=== PATIENT | male | born 1985 | race Two or more races ===

== ENCOUNTER 2021-05-28 09:24 | Inpatient (IN) | payer OTHER ==
[~2021-05-28] VITALS: Ht 172.7 cm; Wt 77.1 kg
[2021-05-28] MEDS ORDERED: DEXAMETHASONE SOD PHOSPHATE 4 MG INJ IV ONE (09:45)
[2021-05-28] MEDS ORDERED: IV NS 1000 ML 1,000 ML IV ONE (09:45)
[2021-05-28] MEDS ORDERED: DEXAMETHASONE SOD PHOSPHATE 10 MG INJ ONE (10:06)
[2021-05-28 10:15] LABS: CREATININE 1.4 mg/dL (0.6-1.3); POTASSIUM 4.5 mmol/L (3.5-5.1)
[2021-05-28 10:28] LABS: BILIRUBIN,TOTAL 0.6 mg/dL (0.2-1.0); TOTAL PROTEIN, SERUM 9.4 g/dL (6.4-8.2)
[2021-05-28 10:30] LABS: HEMATOCRIT 42.2 % (36.7-47.1); MEAN CORPUSCULAR HEMOGLOBIN 30.6 uug (23.8-33.4); PLATELET COUNT (AUTO) 90 K/uL (152-348)
[2021-05-28] MEDS ORDERED: IV NORMAL SALINE 1000 ML BAG IV ONE (10:45)
[2021-05-28] MEDS ORDERED: IOHEXOL 350 100 ML INFUS..BTL ONE (10:59)
[2021-05-28] MEDS ORDERED: SWABABLE VALVE TRANSFER SET EA MC ONE (10:59)
[2021-05-28] MEDS ORDERED: IV NORMAL SALINE 250 ML IV ONE (10:59)
--- NOTE | 2021-05-28 11:02 | NUR ---
Pt states feeling improvement in S/S. VSS, but continues to require O2 therapy. 1st L of NS complete, second started. news technical director transporting pt for [place] via [facility].
--- NOTE | 2021-05-28 11:35 | NUR ---
Pt returned from scan. Continues to states improvement over state of arrival. Decreased O2 to 10L. Pt responding well to decrease, SpO2 99%.
[2021-05-28] MEDS ORDERED: levoFLOXacin 750 MG/D5W 150 ML PIGGYBACK IV ONE (12:00)
[2021-05-28] MEDS ORDERED: levoFLOXacin 750MG/D5W 150 ML IV ONE (12:16)
--- NOTE | 2021-05-28 12:38 | NUR ---
Pt attempted to situp and transfer to bedside commode. Was able to transfer but quickly returned to bed at semi-fowlers and stated unable to breathe while sat on commode. Increase O2 therapy to 15L. Pt took a moment and was able to regain control of breathing. Used urinal instead of commode. States feeling better after laying for a bit with continued O2. Provider notified.
--- NOTE | 2021-05-28 13:55 | NUR ---
Decreased O2 to 10L non-rebreather, since feeling more stable since incident at commode. Pt tolerating well, SpO2 at 96%
[2021-05-28] MEDS ORDERED: ENOXAPARIN SODIUM 40 MG/0.4 ML DISP.SYRIN SQ ONE ×2 (14:15→14:28)
[2021-05-28] MEDS ORDERED: MAGNESIUM HYDROXIDE 30 ML LIQUID UDC PO PRN (14:45)
[2021-05-28] MEDS ORDERED: HYDROCODONE/APAP 5-325MG TABLET PO PRN (14:45)
[2021-05-28] MEDS ORDERED: ONDANSETRON 4 MG/2 ML VIAL IV PRN (14:45)
[2021-05-28] MEDS ORDERED: ACETAMINOPHEN 325 MG TABLET PO PRN (14:45)
[2021-05-28] MEDS ORDERED: Z GUARD REMEDY PASTE 57 GM TUBE TOP PRN (14:45)
--- NOTE | 2021-05-28 17:20 | NUR ---
Pt transported by ANNE De Los Santos via [facility] to [facility].
[2021-05-28 18:30] VITALS: BP 115/72
--- NOTE | 2021-05-28 19:00 | NUR ---
ADMITTED PATIENT FROM [facility] ER AT 1525 IS RESTING IN ROOM WITH THE NON REBREATHER MASK AT 15 LITERS WITH O2 AT 94-96 PERCENT VARYING NO SOB HE IS TRYING TO EAT DINNER AT THE MOMENT BUT C/O DOES NOT FEEL HUNGRY WILL CONTINUE TO OBSERVE ENCOURAGE ORAL FLUID INTAKE AT LEAST AND PROVIDE SAFE AND THERAPEUTIC ENVIRONMENT.
[2021-05-28 20:00] VITALS: BP 114/74
--- NOTE | 2021-05-28 22:12 | NUR ---
Patient in bed AALox4 with 15 L non-rebreather mask saturating 95%.Denies pain or discomfort at this time.NSr on Tele .Iv on left Ac 20 g patent and intact.Temp 100.2 Tylenol given.Proper PPE strictly observed for covid. Temp went down to 98.5.Call light with in reach . Will continue to monitor.
[2021-05-29] VITALS: BP 103/68
[2021-05-29 04:00] VITALS: BP 113/62
[2021-05-29] MEDS: PANTOPRAZOLE SODIUM 40 MG TABLET.DR PO SCH (06:24)
[2021-05-29 06:57] LABS: HEMATOCRIT 40.1 % (36.7-47.1); MEAN CORPUSCULAR HEMOGLOBIN 30.2 uug (23.8-33.4); MEAN CORPUSCULAR VOLUME 87.5 fL (73.0-96.2); PLATELET COUNT (AUTO) 275 K/uL (152-348)
[2021-05-29 07:08] LABS: BILIRUBIN,DIRECT 0.1 mg/dL (0.0-0.2); BILIRUBIN,TOTAL 0.5 mg/dL (0.2-1.0); CREATININE 1.1 mg/dL (0.6-1.3); MAGNESIUM 2.4 mg/dL (1.8-2.4); PHOSPHOROUS 3.3 mg/dL (2.5-4.9); POTASSIUM 3.8 mmol/L (3.5-5.1); TOTAL PROTEIN, SERUM 7.1 g/dL (6.4-8.2)
[2021-05-29] MEDS: ENOXAPARIN SODIUM 40 MG/0.4 ML DISP.SYRIN SQ SCH (08:32)
[2021-05-29] MEDS ORDERED: DEXAMETHASONE SOD PHOSPHATE 4 MG INJ IV SCH (09:00)
[2021-05-29 12:00] VITALS: BP 116/74
--- NOTE | 2021-05-29 12:19 | NUR ---
DR CHOI HERE TO SEE AND EXAMINE PATIENT WITH NEW ORDERS AND NOTED.
[2021-05-29] MEDS: levoFLOXacin 500 MG/D5W 500 MG in PREMIXED 1 EACH IV SCH (12:48)
[2021-05-29] MEDS: DEXAMETHASONE SOD PHOSPHATE 4 MG INJ IV SCH ×2 (13:08→21:00)
--- NOTE | 2021-05-29 14:00 | NUR ---
I WAS IN THE PATIENTS ROOM SPOKE WITH HIM AND HIS WAS ON THE PHONE FACE TIMING HIM AND I EXPLAINED TO THEM THE NEW MEDICATIONS THAT HE WAS ORDERED BY THE PULMONARY DOCTOR AND AT THE TIME THE WAS VERY HESITANT IN HER TAKING THIS MEDICATION BUT HER THE PATIENT WAS LEANING TOWARDS TAKING THE THIS MEDICATION SO I CALLED AND NOTIFIED THE PHARMACY THAT PATIENT WILL TAKE THE THIS MEDICATIONS BUT SOON I RETURNED BACK TO THE STATION PATIENTS DEWEY WAS ON THE PHONE AT THE NURSES STATION AND STATED THAT SHE DOES NOT WANT HER TO TAKE REMDESIVIR PHARMACY NOTIFIED.
--- NOTE | 2021-05-29 14:15 | NUR ---
CALL RECEIVED FROM PATIENTS DEWEY STATED THAT SHE DID NOT WANT HER TO TAKE REMDESIVIR ORDERED PHARMACY NOTIFIED.
[2021-05-29] MEDS ORDERED: REMDESIVIR (CHARGED) 200 MG in IV NORMAL SALINE 210 ML IV ONE (15:00)
--- NOTE | 2021-05-29 15:00 | NUR ---
PATIENT IS AWARE THAT HIS IS REFUSING ADMINISTRATION OF THE REMZEDIVIR AND HE STATED THAT HE IS REFUSING TOO.PATIENTS RIGHT TO REFUSE RESPECTED AT THIS TIME.
[2021-05-29 16:09] VITALS: BP 120/74
[2021-05-29] MEDS ORDERED: REMDESIVIR (CHARGED) 100 MG in IV NORMAL SALINE 100 ML IV SCH (17:15)
--- NOTE | 2021-05-29 17:54 | NUR ---
PATIENT IS RESTING IN ROOM WITH THE NON REBREATHER MASK AT 15 LITERS WITH O2 AT 94-96 PERCENT VARYING NO SOB HE IS TRYING TO EAT DINNER AT THE MOMENT BUT C/O DOES NOT FEEL HUNGRY WILL CONTINUE TO OBSERVE ENCOURAGE ORAL FLUID INTAKE AT LEAST AND PROVIDE SAFE AND THERAPEUTIC ENVIRONMENT.
--- NOTE | 2021-05-29 19:30 | NUR ---
Patient resting in bed. AAO x4. Patient noted to be highly anxious. States he has not slept in a couple of days since he afraid he will stop breathing. States he sleeps and wakes up momentarily to make sure he is sleeping. On 15 L via non rebreather mask, 02 sats are 95%. Continuous 02 sat monitor ordered. on Telemetry, NSR. Right AC IV in place, intact and patent. Needs assessed and attended. Call light within reach.
[2021-05-29 20:18] VITALS: BP 123/72
--- NOTE | 2021-05-29 21:00 | NUR ---
Karli HANDLEY made aware patient is having trouble sleeping but refusing any sleep medications at this time.
[2021-05-30] VITALS (7 sets, daily range): BP systolic 115–141; BP diastolic 71–81
[2021-05-30] MEDS: DEXAMETHASONE SOD PHOSPHATE 4 MG INJ IV SCH ×3 (06:16→21:34)
[2021-05-30] MEDS: PANTOPRAZOLE SODIUM 40 MG TABLET.DR PO SCH (06:17)
--- NOTE | 2021-05-30 06:49 | NUR ---
Awake for this shift with occasional dozing. No significant events. 02 at 15L/min via non rebreather mask, no SOB or coughing noted, 02 sats 96%-97%. Patient NSR on telemetry. Still noted with worrisome but improved with continuous 02 sat monitor. Safety measures continued. Call light within reach.
[2021-05-30] MEDS: ENOXAPARIN SODIUM 40 MG/0.4 ML DISP.SYRIN SQ SCH (08:36)
[2021-05-30 09:17] LABS: ABG BASE EXCESS 4.4 mmol/L; ABG HCO3 27.9 mmol/L; ABG PCO2 37.7 mmHg (35.0-45.0); ABG PH 7.487 (7.350-7.450); ABG PO2 63.4 mmHg (75.0-100.0); ABG SITE RIGHT RADIAL; ABG TOTAL HEMOGLOBIN 14.6 G/dL (13.5-18.0); COHb 0.3 % (0.5-1.5); MetHb 0.4 % (0.0-1.5); O2Hb 92.5 % (94.0-97.0)
[2021-05-30] MEDS: levoFLOXacin 500 MG/D5W 500 MG in PREMIXED 1 EACH IV SCH (12:38)
--- NOTE | 2021-05-30 14:19 | NUR ---
Pt is a/o x 4, normal sinus rhythm on telemetry, saturating 96% on 15L nonrebreather. Pt refused morning labs, agreed to have RT draw ABGs in am. Pt would like to titrate off oxygen, will consult with RT for titration. and pt refuse to receive remdezvir tx. aware. Comfort measures provided, call light within reach, IV patent and intact. Will continue to monitor.
[2021-05-30] MEDS ORDERED: REMDESIVIR (CHARGED) 100 MG in IV NORMAL SALINE 100 ML IV SCH (15:00)
--- NOTE | 2021-05-30 18:29 | NUR ---
Pt refused to titrate O2 level, he stated he at randome times feels short of breath. I asked if saturation drops when he feels SOB but pt stated that it stays at a constant 94-96% saturation. Comfort measures provided, no complint of pain, no signs of acute distress. Call light within reach, IV intact and patent. Will endorse to [facility].
--- NOTE | 2021-05-30 19:45 | NUR ---
Received patient lying in bed. AAOX4. On 15L NRM, saturating at 96-97%. On tele monitor, showing sinus rhythm. IV access on L AC patent and intact. Safety precautions and comfort measures initiated. Bed in locked position, call light button and frequently used items within reach. Will continue to monitor.
[2021-05-31 04:02] VITALS: BP 121/78
[2021-05-31] MEDS: DEXAMETHASONE SOD PHOSPHATE 4 MG INJ IV SCH ×3 (05:19→21:20)
[2021-05-31] MEDS: PANTOPRAZOLE SODIUM 40 MG TABLET.DR PO SCH (06:01)
--- NOTE | 2021-05-31 06:38 | NUR ---
Patient slept through the night. On 15L O2 via non-rebreather mask, saturating at 95-97%. On tele monitor, showing sinus bradycardia with HR of 45-55bpm. Patient denies dizziness or SOB. All due medications were given as ordered. Needs were attended to and met. Safety precautions maintained. Will endorse to day shift.
[2021-05-31] MEDS: ENOXAPARIN SODIUM 40 MG/0.4 ML DISP.SYRIN SQ SCH (08:48)
--- NOTE | 2021-05-31 08:57 | NUR ---
Received in bed awake and oriented x4. Denies sob/chest pain. SB on telemonitor hr mid 50s. On 15 Lpm nrb mask on o2 95%. Breathing non labored. Kept comfortable. Call light in reach. cont to monitor.
[2021-05-31 12:00] VITALS: BP 112/71
--- NOTE | 2021-05-31 12:28 | NUR ---
Patient is saturating 95-98% on 15 Lpm non rebreather mask. Attempted to wean off oxygen. Patient put on O2 10Lpm with simple mask but pt desaturated to 89-90% and started hyperventilating saying he's short of breath. Put back on non rebreather mask at 15Lpm O2 sat went up to 95%. Pt said he feels much better but would like to try O2 at 13Lpm. He tolerated o2 at 13lpm with nrb mask o2 sat 94-95% no sob, no hyperventilation and will cont to monitor.
[2021-05-31] MEDS: levoFLOXacin 500 MG/D5W 500 MG in PREMIXED 1 EACH IV SCH (13:05)
[2021-05-31 16:00] VITALS: BP 110/66
--- NOTE | 2021-05-31 18:26 | NUR ---
Pt tolerating 13 Lpm nrb mask. o2 sat 95-97%. Denies pain or sob. SB on telemonitor hr 51. Encouraged several times to get up from bed and move around the room but pt prefers to just lay in bed. Ann [phone] called asking about pcr informed still pending. Soco from lab called outside lab and was informed someone will call her back. informed. Will endorse accordingly.
--- NOTE | 2021-05-31 19:30 | NUR ---
Received patient lying in bed. AAOx4. In no apparent distress. Denies any pain or SOB at this time. On non-rebreather mask at 13LPM. O2 sat at 97%. On continuous pulse oximeter monitor. Sinus graciela on tele with HR of 43/min. IV site on left AC intact and patent. Needs assessed and attended to. COVID precaution observed. Safety measure initiated and call light within reached.
[2021-05-31 20:25] VITALS: BP 114/72
--- NOTE | 2021-05-31 21:30 | NUR ---
Patient c/o of SOB, although O2 sat 100% on non-rebreather mask at 13LPM. Patient requested to titrate O2. Place patient on 15LPM via non-rebreather mask and felt relieve. Will continue to monitor.
--- NOTE | 2021-05-31 22:35 | NUR ---
Telephone call from [facility] and reported PCR result, + for COVID.
[2021-06-01] VITALS: BP 119/73
[2021-06-01 04:49] VITALS: BP 113/75
[2021-06-01] MEDS: DEXAMETHASONE SOD PHOSPHATE 4 MG INJ IV SCH ×3 (06:07→21:17)
[2021-06-01] MEDS: PANTOPRAZOLE SODIUM 40 MG TABLET.DR PO SCH (06:07)
--- NOTE | 2021-06-01 06:25 | NUR ---
AAOx4. In no apparent distress. Denies any pain or SOB. On non-rebreather mask at 15LPM. O2 sat at 98%. On continuous pulse oximeter monitor. Sinus graciela on tele with HR of 44/min. IV site on left AC intact and patent. Needs assessed and attended to. COVID precaution maintained. Safety measure maintained and call light within reached.
--- NOTE | 2021-06-01 07:47 | NUR ---
HR noted 36, patient sleeping, assessed he's feeling okay. HR to 45
[2021-06-01] MEDS: ENOXAPARIN SODIUM 40 MG/0.4 ML DISP.SYRIN SQ SCH (08:44)
[2021-06-01 08:45] VITALS: BP 113/69
--- NOTE | 2021-06-01 10:30 | NUR ---
O2 titrated to 10L/NRB with O2 sat of 97%
--- NOTE | 2021-06-01 11:40 | NUR ---
Rapid Covid swab done, sent to lab
[2021-06-01 12:00] VITALS: BP 113/71
--- NOTE | 2021-06-01 12:00 | NUR ---
O2 titrated to 6L/NC humidified with O2 sat of 95%
[2021-06-01] MEDS: levoFLOXacin 500 MG/D5W 500 MG in PREMIXED 1 EACH IV SCH (12:02)
--- NOTE | 2021-06-01 15:11 | NUR ---
O2 at 6L/NC humidified with O2 sat of 96%. Offered again to help changing with shirt but still refused.
[2021-06-01 15:55] VITALS: BP 109/68
--- NOTE | 2021-06-01 18:00 | NUR ---
Attempted to sit at the edge of the bed but short of breath. Able to turn to sides. O2 at 6L/NC with O2 sat of 95-96%. Tele SB 53
--- NOTE | 2021-06-01 19:30 | NUR ---
Received awake, alert and orientedx4. Pt in no acute distress. Pt on 6l nasal cannula. Iv intact.Pt had visitor and visitor stated he will just give the food. Safety and comfort provided. Will continue to monitor.
[2021-06-01 20:12] VITALS: BP 125/74
--- NOTE | 2021-06-01 22:00 | NUR ---
titrated oxygen down to 5l. Pt tolerating oxygen. Oxygen saturation is 98%.
[2021-06-02] VITALS: BP 108/73
[2021-06-02 04:15] VITALS: BP 109/71
[2021-06-02] MEDS: DEXAMETHASONE SOD PHOSPHATE 4 MG INJ IV SCH ×2 (05:45→20:29)
[2021-06-02] MEDS: PANTOPRAZOLE SODIUM 40 MG TABLET.DR PO SCH (06:00)
--- NOTE | 2021-06-02 06:25 | NUR ---
Pt slept intermittently. Pt in no acute distress.Pt on 5l nasal cannula. Prescribed medication given and pt tolerated it well.Pt on sinus rhythm. Safety and comfort provided .All needs are met. Will Endorse to incoming nurse for continuity of care.
[2021-06-02 08:19] LABS: HEMATOCRIT 44.2 % (36.7-47.1); MEAN CORPUSCULAR HEMOGLOBIN 30.7 uug (23.8-33.4); MEAN CORPUSCULAR VOLUME 87.3 fL (73.0-96.2); PLATELET COUNT (AUTO) 516 K/uL (152-348)
[2021-06-02 08:33] LABS: MAGNESIUM 2.8 mg/dL (1.8-2.4); POTASSIUM 4.8 mmol/L (3.5-5.1)
[2021-06-02] MEDS: ENOXAPARIN SODIUM 40 MG/0.4 ML DISP.SYRIN SQ SCH (09:04)
[2021-06-02 10:56] VITALS: BP 115/78
[2021-06-02] MEDS: levoFLOXacin 500 MG/D5W 500 MG in PREMIXED 1 EACH IV SCH (12:14)
[2021-06-02] MEDS: CHOLECALCIFEROL 1,000 UNIT TABLET PO SCH (12:15)
[2021-06-02] MEDS: ASCORBIC ACID 500 MG TABLET PO SCH (12:15)
[2021-06-02 16:40] VITALS: BP 116/71
[2021-06-02] MEDS: ENSURE ENLIVE (VAN) 240 ML LIQUID PO SCH (17:00)
[2021-06-02 20:36] VITALS: BP 115/77
[2021-06-03 00:21] VITALS: BP 112/64
[2021-06-03 04:53] VITALS: BP 103/58
[2021-06-03] MEDS: PANTOPRAZOLE SODIUM 40 MG TABLET.DR PO SCH (06:11)
--- NOTE | 2021-06-03 06:50 | NUR ---
Slept throughout the night. Denies pain or SOB. On 1L satting 95-96%, tolerating well. Pt refused to let this nurse swab him for covid with PCR test. Dr. Lees notified. No distress noted. Will endorse to day shift.
--- NOTE | 2021-06-03 07:39 | NUR ---
Received report from police shift commander nurse, Smita RODRÍGUEZ. Patient resting comfortably in bed with bed in lowest position and call light within reach. Will continue to monitor patient throughout shift.
[2021-06-03] MEDS: CHOLECALCIFEROL 1,000 UNIT TABLET PO SCH (09:05)
[2021-06-03] MEDS: ASCORBIC ACID 500 MG TABLET PO SCH (09:05)
[2021-06-03] MEDS: ENOXAPARIN SODIUM 40 MG/0.4 ML DISP.SYRIN SQ SCH (09:07)
[2021-06-03] MEDS: DEXAMETHASONE SOD PHOSPHATE 4 MG INJ IV SCH (09:08)
[2021-06-03] MEDS: ENSURE ENLIVE (VAN) 240 ML LIQUID PO SCH ×2 (09:18→17:00)
[2021-06-03 12:00] VITALS: BP 105/70
[2021-06-03] MEDS: levoFLOXacin 500 MG/D5W 500 MG in PREMIXED 1 EACH IV SCH (12:53)
[2021-06-03 16:58] VITALS: BP 120/77
[2021-06-03] MEDS ORDERED: METH4TAB3 PO (17:49)
[2021-06-03] MEDS ORDERED: ASCO500T21 PO (17:49)
[2021-06-03] MEDS ORDERED: CHOL100062 PO (17:49)
[2021-06-03] MEDS ORDERED: ALBU8.5H8 INH (17:49)
--- NOTE | 2021-06-03 18:42 | NUR ---
Patient saturating at 95% on Room Air.
--- NOTE | 2021-06-03 20:32 | NUR ---
Patient brought down in wheel chair. IV band and IV removed. Patient took belongings but left a lot of unopened food in the room. He stated that he does not want it. Patient had a problem with wearing a mask in the hallway. Brought patient down to his and he left in a private vehicle.
[2021-06-04] MEDS ORDERED: DEXAMETHASONE 4 MG TABLET PO SCH (09:00)
== END 2021-06-03 20:30 | disposition still patient (30) | DRG 871 ==
LOC: ER 09:24 → TRANSITION 15:02 → TELE3 17:08 → MEDSURG3 06-03 14:13
PROVIDERS: ADMIT Student in an Organized Health Care Education/Training Program; ATTEND Internal Medicine
DX: A41.89 Other specified sepsis (principal); U07.1 COVID-19; J12.82 Pneumonia due to coronavirus disease 2019; J96.01 Acute respiratory failure with hypoxia; N17.0 Acute kidney failure with tubular necrosis; D69.6 Thrombocytopenia, unspecified; R74.01 Elevation of levels of liver transaminase levels; Z82.49 Family history of ischemic heart disease and other diseases of the circulatory system
CPT/HCPCS: 36415; 36600; 70030-TC; 71045; 71275; 83605; 83615; 83735; 84100; 85025; 86140; 87040; 87400; 93005; 94760; A4663; G0378; J1100; J1650; J1956; J3490; J7030; J7040; J7050; Q9967; U0003